=== PATIENT | female | born 1970 | race African-American/Black ===

== ENCOUNTER 2016-07-24 21:04 | Emergency (ER) | payer OTHER ==
[~2016-07-24] VITALS: Ht 170.2 cm; Wt 68.0 kg
[2016-07-24 21:18] VITALS: BP 123/77
--- NOTE | 2016-07-24 21:55 | PHYS DOC ---
Past Medical History Past Medical History: Asthma, Hypertension Additional Past Medical Histor: VAGINAL FIBROIDS Past Surgical History: Oophorectomy Additional Information: 0.5 PPD Alcohol Use: Occasionally Drug Use: Marijuana Adult General Chief Complaint Chief Complaint: SORE THROAT [facility] HPI Patient is a 46 year old female presents to emergency department stating that she's had a sore throat for the last month. 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 Patient states that she'll have a sore throat middle go away when she thinks she's getting better in the middle come back. Patient states that she feels like its painful to swallow and feels as though she can't swallow. She does state that she is able to swallow fluids she is able to maintain her own saliva. Patient denies any fever she does state that she has chills off and on. Patient states she feels as though there is something blocking her throat. Patient denies any shortness of air difficulty breathing. She is does state that she has been fatigued. Patient denies any nausea vomiting or abdominal pain. Review of Systems Review of Systems Constitutional: Denies fever or chills [] Eyes: Denies change in visual acuity, redness, or eye pain [] HENT: Denies nasal congestion or sore throat [] Respiratory: Denies cough or shortness of breath [] Cardiovascular: No additional information not addressed in HPI [] GI: Denies abdominal pain, nausea, vomiting, bloody stools or diarrhea [] : Denies dysuria or hematuria [] Musculoskeletal: Denies back pain or joint pain [] Integument: Denies rash or skin lesions [] Neurologic: Denies headache, focal weakness or sensory changes [] Endocrine: Denies polyuria or polydipsia [] Allergies Allergies Allergies Coded Allergies Type Severity Reaction Last Updated Verified No Known Drug Allergies 08/11/14 No Physical Exam Physical Exam Constitutional: Well developed, well nourished, no acute distress, non-toxic appearance. [] HENT: Normocephalic, atraumatic, bilateral external ears normal, oropharynx moist, no oral exudates, nose normal. Bilateral tympanic membranes appear to be normal. Throat with no erythematous noted no exudate noted it does appear to be red no obstruction noted. Patient was noted to have a whitened area of the left side of the palate. No drainage or discharge noted from the area. No anterior cervical adenopathy noted Eyes: PERRLA, EOMI, conjunctiva normal, no discharge. [] Neck: Normal range of motion, no tenderness, supple, no stridor. [] Cardiovascular:Heart rate regular rhythm, no murmur [] Lungs & Thorax: Bilateral breath sounds clear to auscultation [] Skin: Warm, dry, no erythema, no rash. [] Back: No tenderness Extremities: No tenderness, no cyanosis, no clubbing, ROM intact, no edema. [] Neurologic: Alert and oriented X 3, normal motor function, normal sensory function, no focal deficits noted. [] Psychologic: Affect normal, judgement normal, mood normal. [] Current Patient Data Vital Signs Vital Signs Date Time Temp Pulse Resp B/P (MAP) Pulse Ox O2 Delivery O2 Flow Rate FiO2 07/24/16 21:18 98.7 74 20 100 Room Air 98.7 EKG EKG [] Radiology/Procedures Radiology/Procedures [] Course & Med Decision Making Course & Med Decision Making Pertinent Labs and Imaging studies reviewed. (See chart for details) Rapid strep was negative. Provided patient with this information. Patient states I still feel that there is something blocking my throat when I cannot drink and eat. I think that there is something more going on is with the patient continues to state. Offered the patient a x-ray to identify any foreign objects or any abnormalities. Patient states I we'll just follow up with my own primary doctor as this is been going on for a month. Patient will be discharged home in stable condition recommendations to follow-up with her primary care physician Thursday. Signs and symptoms to return back to emergency department as been provided. [] Dragon Disclaimer Dragon Disclaimer This electronic medical record was generated, in whole or in part, using a voice recognition dictation system. Departure Departure Impression: Primary Impression: Pharyngitis Disposition: HOME, SELF-CARE Condition: STABLE Referrals: UNKNOWN PCP NAME (PCP) Patient Instructions: Viral and Bacterial Pharyngitis, [id number] Additional Instructions: Activity as tolerated. Tylenol or ibuprofen for pain and discomfort. Drink plenty of fluids such as water or Gatorade or propel. Follow-up with your primary care physician next 3-5 days. Return back to emergency prior signs symptoms of become worse. ALYSON CRUZ [employer] July 24, 2016 21:54
[2016-07-24] MEDS ORDERED: LIDOCAINE 2% VISCOUS 15 ML SOLUTION. SWSW ONE (22:30)
[2016-07-25 06:50] LABS: NEGATIVE OBC STREP NEG; POSITIVE OBC STREP POS
== END 2016-07-24 22:00 | disposition home or self-care (01) ==
LOC: ER 21:04
DX: J02.9 Acute pharyngitis, unspecified (principal); J45.909 Unspecified asthma, uncomplicated; I10 Essential (primary) hypertension; F12.10 Cannabis abuse, uncomplicated; F17.200 Nicotine dependence, unspecified, uncomplicated; Z90.79 Acquired absence of other genital organ(s)
CPT/HCPCS: 87070; 87880; 99283; 99284-25